=== PATIENT | female | born 1995 | race American Indian/Alaskan Native ===

== ENCOUNTER 2018-04-09 19:13 | Emergency (ER) | payer MEDICAID ==
[2018-04-09 19:49] VITALS: BP 116/65
--- NOTE | 2018-04-09 19:50 | Emergency Department Report ---
Blank Doc - Documentation Documentation: 22 y.o. female 16 weeks with vaginal pain since this morning. 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 There is clear discharge and frequency. LMP 12/2017, A1 miscarriage. Denies abdominal pain, low back pain, vaginal bleeding, or dysuria. Labs ordered Fast Track for evaluation
[2018-04-09 22:14] LABS: Bilirubin,Urine NEG (Negative); Blood,Urine NEG (Negative); Color,Urine Yellow (Yellow); Mucus,Urine FEW /HPF; Protein,Urine <15 mg/dL mg/dL (Negative); Urobilinogen,Urine < 2.0 mg/dL (<2.0); WBC,Urine < 1.0 /HPF (0.0-6.0)
== END 2018-04-09 20:14 | disposition left against medical advice (07) ==
LOC: ED 19:13
DX: R10.9 Unspecified abdominal pain (principal); Z53.21 Procedure and treatment not carried out due to patient leaving prior to being seen by health care provider
CPT/HCPCS: 36415; 81001; 84702; 86900; 86901

== ENCOUNTER 2020-12-05 15:44 | Emergency (ER) | payer MEDICAID ==
[2020-12-05] MEDS ORDERED: diphenhydrAMINE 50 MG/ML VIAL IV ONE (16:26)
[2020-12-05] MEDS ORDERED: FAMOTIDINE 20 MG/2 ML INJ IV ONE (16:26)
[2020-12-05] MEDS ORDERED: methylPREDNISolone Sod Succinate 125 MG/2 ML INJ IV ONE (16:27)
--- NOTE | 2020-12-05 16:31 | Emergency Department Report ---
ED Allergic Reaction HPI - General Chief complaint: Allergic Reaction Stated complaint: ALLERGIC REACTION Time Seen by Provider: 12/05/20 16:20 Source: EMS Mode of arrival: Stretcher Limitations: No Limitations - History of Present Illness Initial Comments: Patient is 25-year-old female with history of seafood allergic reaction. Patient presented to the ER via EMS from home for evaluation after a sudden onset of lip swelling and tongue numbness and difficulty breathing after patient accidentally ate a seafood. Patient received epinephrine by EMS and she stated that she took 2 tablets of Benadryl prior to coming to the ER. Patient currently symptom is much better. Patient denied any difficulty swallowing or difficulty breathing. MD Complaint: allergic reaction, hives, facial swelling -: Sudden Exposure: food Symptoms: itching, facial swelling, lip swelling, difficulty breathing Severity: moderate Treatment Prior to Arrival: benadryl, epinephrine Previous Allergy History: prior ED visit(s) - Related Data Previous Rx's Medication Instructions Recorded Last Taken Type Albuterol Mdi (or & Nicu Only) 2 puff IH QID PRN #1 inhalation 11/01/15 Unknown Rx [ProAir HFA Inhaler] predniSONE [Deltasone] 20 mg PO QDAY #5 tab 11/06/15 Unknown Rx Amoxicillin [Trimox CAP] 500 mg PO BID #14 capsule 12/09/15 Unknown Rx Cetirizine HCl [ZyrTEC] 10 mg PO DAILY #15 capsule 12/09/15 Unknown Rx Allergies Allergy/AdvReac Type Severity Reaction Status Date / Time shellfish derived Allergy Anaphylaxis Verified 04/17/18 09:18 ED Review of Systems ROS: Stated complaint: ALLERGIC REACTION Other details as noted in HPI Comment: All other systems reviewed and negative Constitutional: denies: chills, fever Respiratory: shortness of breath. denies: cough, wheezing Cardiovascular: denies: chest pain, palpitations Gastrointestinal: denies: abdominal pain, nausea, vomiting Musculoskeletal: denies: back pain Neurological: denies: headache, weakness ED Past Medical Hx - Past Medical History Hx Hypertension: No Hx Diabetes: No Hx Deep Vein Thrombosis: No Hx Renal Disease: No Hx Sickle Cell Disease: No Hx Seizures: No Hx Asthma: Yes Hx HIV: No - Surgical History Additional Surgical History: cyst removal - Social History Smoking Status: Never Smoker Substance Use Type: None - Medications Home Medications: Home Medications Medication Instructions Recorded Confirmed Last Taken Type Albuterol Mdi (or & Nicu Only) 2 puff IH QID PRN #1 inhalation 11/01/15 Unknown Rx [ProAir HFA Inhaler] predniSONE [Deltasone] 20 mg PO QDAY #5 tab 11/06/15 Unknown Rx Amoxicillin [Trimox CAP] 500 mg PO BID #14 capsule 12/09/15 Unknown Rx Cetirizine HCl [ZyrTEC] 10 mg PO DAILY #15 capsule 12/09/15 Unknown Rx ED Physical Exam - General Limitations: No Limitations General appearance: alert, in no apparent distress - Head Head exam: Present: atraumatic, normocephalic, normal inspection - Eye Eye exam: Present: normal appearance, PERRL - ENT ENT exam: Present: normal exam, normal orophraynx, mucous membranes moist - Neck Neck exam: Present: normal inspection, full ROM. Absent: tenderness, meningismus - Respiratory Respiratory exam: Present: normal lung sounds bilaterally. Absent: respiratory distress, wheezes, rales, rhonchi - Cardiovascular Cardiovascular Exam: Present: regular rate, normal rhythm, normal heart sounds - GI/Abdominal GI/Abdominal exam: Present: soft, normal bowel sounds. Absent: distended, tenderness, guarding, rebound, rigid, mass, bruit, pulsatile mass, hernia - Extremities Exam Extremities exam: Present: normal inspection, full ROM, normal capillary refill. Absent: tenderness, pedal edema, calf tenderness - Back Exam Back exam: Present: normal inspection, full ROM. Absent: CVA tenderness (R), CVA tenderness (L) - Neurological Exam Neurological exam: Present: alert, oriented X3, CN II-XII intact - Psychiatric Psychiatric exam: Present: normal mood - Skin Skin exam: Present: warm, intact, normal color ED Course Vital Signs 12/05/20 17:43 Temperature 98.9 F Pulse Rate 91 H Respiratory 16 Rate Blood Pressure 120/70 Blood Pressure 120/70 [Left] O2 Sat by Pulse 98 Oximetry ED Medical Decision Making - Medical Decision Making Patient is 25-year-old female with history of seafood allergic reaction. Patient presented to the ER via EMS from home for evaluation after a sudden onset of lip swelling and tongue numbness and difficulty breathing after patient accidentally ate a seafood. Patient received epinephrine by EMS and she stated that she took 2 tablets of Benadryl prior to coming to the ER. Patient currently symptom is much better. Patient denied any difficulty swallowing or difficulty breathing. Patient received Benadryl, Solu-Medrol and Pepcid. Patient remained stable in the ER with stable vital sign. No stridor. Patient denied any difficulty in breathing or difficulty swallowing. Patient observed in the ER for 3 hours. Patient given prescription for prednisone, Pepcid and Benadryl and EpiPen advised to return to the ER if she develop any new symptoms or if symptoms get worse. Patient also advised to follow-up with her primary doctor in the next 2 to 3 days. Critical care attestation.: If time is entered above; I have spent that time in minutes in the direct care of this critically ill patient, excluding procedure time. ED Disposition Clinical Impression: Acute allergic reaction Disposition: 01 HOME / SELF CARE / HOMELESS Is pt being admited?: No Condition: Stable Instructions: Allergies, Adult, [id number] Referrals: PRIMARY CARE, [Referring] - 3-5 Days
[2020-12-05 17:51] VITALS: BP 120/70
== END 2020-12-05 18:30 | disposition home or self-care (01) ==
LOC: ED 15:44
DX: R06.02 Shortness of breath (principal); T78.1XXA Other adverse food reactions, not elsewhere classified, initial encounter; R60.0 Localized edema; J45.909 Unspecified asthma, uncomplicated; Z98.890 Other specified postprocedural states; Z91.013 Allergy to seafood; X58.XXXA Exposure to other specified factors, initial encounter
CPT/HCPCS: 96374; 96375; 99283; J1200; J2930